=== PATIENT | female | born 1980 ===

== ENCOUNTER → 2019-04-03 | Day surgery (SDC) | payer OTHER ==
[~2019-04-03] MED LIST: FOLBIC RF TABL1 EACH PO; FOLIC ACID1 MG PO; METHOTREXATE2.5 MG PO; VITAMIN D310000 UNIT PO; WELLBUTRIN SR150 MG PO
== END | disposition home or self-care (01) ==
LOC: ADM 03-29 09:15 → CIR.AMB 06:26
DX: R22.32 Localized swelling, mass and lump, left upper limb (principal)